=== PATIENT | female | born 1980 | race Caucasian/White ===

== ENCOUNTER → 2020-06-30 | Outpatient (CLI) | payer BC ==
[2020-06-30 11:33] LABS: ESTRADIOL 1866.4 PG/ML; PROGESTERONE 66.8 NG/ML
== END ==
LOC: M LAB 06:23
PROVIDERS: ATTEND Obstetrics & Gynecology Reproductive Endocrinology
DX: E28.9 Ovarian dysfunction, unspecified (principal)

== ENCOUNTER → 2020-07-06 | Outpatient (CLI) | payer BC ==
[2020-07-06 07:53] LABS: HCG, SERUM QUANTITATIVE < 1.0 MIU/ML
[2020-07-06 08:36] LABS: PROGESTERONE 46.86 NG/ML
== END ==
LOC: M LAB 06:45
PROVIDERS: ATTEND Obstetrics & Gynecology Reproductive Endocrinology
DX: Z32.00 Encounter for pregnancy test, result unknown (principal)

== ENCOUNTER → 2020-11-04 | Outpatient (CLI) | payer BC ==
[2020-11-04 10:32] LABS: ESTRADIOL 1819.4 PG/ML; PROGESTERONE 40.56 NG/ML
== END ==
LOC: M LAB 06:57
PROVIDERS: ATTEND Obstetrics & Gynecology Reproductive Endocrinology
DX: Z31.49 Encounter for other procreative investigation and testing (principal)

== ENCOUNTER → 2020-11-09 | Outpatient (CLI) | payer BC ==
[2020-11-09 07:41] LABS: HCG, SERUM QUANTITATIVE < 1.0 MIU/ML
[2020-11-09 11:17] LABS: PROGESTERONE 34.44 NG/ML
== END ==
LOC: M LAB 06:47
PROVIDERS: ATTEND Obstetrics & Gynecology Reproductive Endocrinology
DX: Z32.00 Encounter for pregnancy test, result unknown (principal)

== ENCOUNTER → 2020-12-08 | Outpatient (CLI) | payer BC ==
[2020-12-08 10:33] LABS: BASO % 0.2 % (0.0-1.0); EOS # 0.1 10^3/uL (0.0-0.5); EOS % 1.2 % (0.0-3.0); HEMATOCRIT 42.4 % (36.0-47.0); LYMPH # 1.8 10^3/uL (1.5-5.0); LYMPH % 29.4 % (24.0-44.0); MEAN CORPUSCULAR HEMOGLOBIN 30.8 pg (27.0-33.0); MEAN CORPUSCULAR VOLUME 93.2 fl (80.0-96.0); MONO # 0.5 10^3/uL (0.0-0.8); MONO % 7.4 % (2.0-8.0); NEUTROPHILS # 3.7 10^3/uL (1.5-8.5); NEUTROPHILS % 61.3 % (36.0-66.0); PLATELET COUNT, AUTOMATED 278 10^3/uL (150-450); RED BLOOD COUNT 4.55 10^6/uL (4.00-5.40); WHITE BLOOD COUNT 6.1 10^3/uL (4.0-10.0)
[2020-12-08 11:08] LABS: ALBUMIN 3.5 GM/DL (3.2-5.2); ALT/SGPT 25 U/L (12-78); BILIRUBIN,TOTAL 0.4 MG/DL (0.2-1.0); BLOOD UREA NITROGEN 11 MG/DL (7-18); CARBON DIOXIDE LEVEL 27 MEQ/L (21-32); CHLORIDE LEVEL 107 MEQ/L (98-107); CHOLESTEROL LEVEL 223 MG/DL (<200); CHOLESTEROL RISK RATIO 3.716 (<5); FREE T4 0.95 NG/DL (0.76-1.46); GLOMERULAR FILTRATION RATE > 60.0 (>60); GLUCOSE, FASTING 87 MG/DL (70-100); HDL CHOLESTEROL 60 MG/DL (>40); LDL CHOLESTEROL 145 MG/DL (<100); NON-HDL-C 163 MG/DL; POTASSIUM SERUM 4.3 MEQ/L (3.5-5.1); SODIUM LEVEL 142 MEQ/L (136-145); TOTAL PROTEIN 6.5 GM/DL (6.4-8.2); TRIGLYCERIDES LEVEL 91 MG/DL (<150)
[2020-12-08 11:19] LABS: HEMOGLOBIN A1c 5.2 %
== END ==
LOC: M PLALAB 08:35
PROVIDERS: ATTEND Nurse Practitioner Family
DX: Z00.00 Encounter for general adult medical examination without abnormal findings (principal); Z13.228 Encounter for screening for other metabolic disorders; Z13.220 Encounter for screening for lipoid disorders

== ENCOUNTER → 2021-03-24 | Outpatient (CLI) | payer BC ==
--- NOTE | 2021-03-24 08:29 | REP ---
INDICATION: INFERTILITY LABS AFTER US COMPARISON: None. TECHNIQUE: Transvaginal examination of the uterus and adnexa with color Doppler evaluation of the ovaries. FINDINGS: Normal anteverted uterus measures 6.7 x 3.4 x 4.3 cm. The endometrial complex measures 4.8 mm thickness. No discrete uterine or endometrial abnormalities are appreciated. Right ovary measures 3.7 x 2.1 x 2.5 cm and includes 10 x 5.3 mm follicle and 20 follicles between 2.7 and 8.6 mm. Left ovary measures 3.4 x 1.9 x 2.5 cm and includes 12.5 x 7.0 mm follicle with small amount of debris and 15 follicles between 1.1 and 8.2 mm. IMPRESSION: Predominantly subcentimeter follicles as noted above. <Electronically signed by Rahul Gonzáles > 03/24/21 1827
[2021-03-24 09:05] LABS: HCG, SERUM QUANTITATIVE < 1.0 MIU/ML
[2021-03-24 09:32] LABS: ESTRADIOL 27.7 PG/ML; LUTEINIZING HORMONE 6.5 mIU/mL; PROGESTERONE 0.76 NG/ML
== END ==
LOC: M LAB 06:38
PROVIDERS: ATTEND Obstetrics & Gynecology Reproductive Endocrinology
DX: Z31.83 Encounter for assisted reproductive fertility procedure cycle (principal); N83.01 Follicular cyst of right ovary; N83.02 Follicular cyst of left ovary

== ENCOUNTER → 2021-03-29 | Outpatient (CLI) | payer BC ==
--- NOTE | 2021-03-29 09:42 | REP ---
INDICATION: INFERTILITY. COMPARISON: None. TECHNIQUE: Transvaginal pelvic ultrasound FINDINGS: The uterus measures 8.5 x 3.3 x 4.7 cm. The endometrial echo complex is unremarkable in appearance having a maximal thickness of 9 mm. There is a small amount of free fluid in the cul-de-sac and endocervical canal. The right ovary measures 5.2 x 3.7 x 5 cm. Within the right ovary there are 15 follicles that measure 1 cm or greater. They are as follows: 1.3 x 0.8, 2.1 x 1.5, 1.4 x 1.6, 1.5 x 1.1, 2.0 x 0.9, 1.5 x 1.2, 1.7 x 1.1, 1.5 x 0.5, 1.3 x 0.9, 1.1 x 0.6, 1.3 x 0.7, 1.7 x 1.3, 1.5 x 0.6, 1.4 x 1.3, and 1.9 x 1.6. Additionally, there are 10 follicles in the 3-9 mm range. The left ovary measures 3.6 x 2.7 x 2.7 cm. Within the left ovary there are 6 follicles that measure 1 cm or greater. They are as follows: 1.1 x 0.4, 1.4 x 1.2, 1.3 x 1.5, 1.1 x 0.6, and 1.6 x 1.4. Additionally, there are 3 follicles in the 4-7 mm range. IMPRESSION: Ovarian follicle study as described above. <Electronically signed by José Luis Callejas > 03/29/21 0933
[2021-03-29 10:03] LABS: ESTRADIOL 449.3 PG/ML; LUTEINIZING HORMONE 9.9 mIU/mL; PROGESTERONE 1.71 NG/ML
== END ==
LOC: M RAD 08:35
PROVIDERS: ATTEND Obstetrics & Gynecology Reproductive Endocrinology
DX: E28.9 Ovarian dysfunction, unspecified (principal)

== ENCOUNTER → 2021-03-31 | Outpatient (CLI) | payer BC ==
--- NOTE | 2021-03-31 08:48 | REP ---
INDICATION: INFERTILITY- LABS AFTER. COMPARISON: None. TECHNIQUE: THIS EXAMINATION HAS BEEN BROUGHT TO MY ATTENTION FOR THE 1ST TIME FOR INTERPRETATION TODAY AT THIS TIME. Real-time sonographic evaluation of the pelvis using trans vaginal technique only FINDINGS: The uterus measures 9 x 5.5 x 3.9 cm. The parenchymal echo pattern is within normal limits. The endometrial echo complex measures 1 cm in thickness and has a normal appearance. There is a small amount of fluid in the cul-de-sac and endocervical canal. The right ovary measures 6.2 x 5.9 x 3.8 cm. Within the right ovary there are 12 follicles which measure 1 cm in size or greater. They are as follows: 2.7 x 1.7, 2.1 x 1.0, 2.1 x 1.5, 1.7 x 1.1, 1.2 x 0.8, 2.8 x 2.2, 1.8 x 1.2, 1.5 x 1.2, 1.7 x 1.2, 2.1 x 1.2, 2.0 x 1.3, and 2.3 x 1.9. In addition, there are 5 follicles which measure between 6 and 7 mm The left ovary measures 3.1 x 3.5 x 2.8 cm. There are 5 follicles which measure 1 cm in size or greater. They are as follows: 1.9 x 1.5, 2.1 x 1.3, 1.7 x 1.4, 1.8 x 1.2, and 1.1 x 1. In addition, there are 6 follicles which measure between 4 and 9 mm. IMPRESSION: Ovarian follicle study as described above. <Electronically signed by José Luis Callejas > 03/31/21 [id number]
[2021-03-31 15:42] LABS: ESTRADIOL 746.8 PG/ML; LUTEINIZING HORMONE 1.6 mIU/mL; PROGESTERONE 2.58 NG/ML
== END ==
LOC: M RAD 06:56
PROVIDERS: ATTEND Obstetrics & Gynecology Reproductive Endocrinology
DX: E28.9 Ovarian dysfunction, unspecified (principal)

== ENCOUNTER → 2021-04-17 | Outpatient (CLI) | payer BC ==
--- NOTE | 2021-04-17 10:15 | REP ---
INDICATION: INFERTILITY\ NEEDS LABS AFTER US. COMPARISON: None. TECHNIQUE: Transvaginal pelvic ultrasound for ovarian follicle study FINDINGS: The uterus is unchanged in size, shape, and echo pattern measuring 7.3 x 4.0 x 4.5 cm. The endometrial echo echo complex is within normal limits measuring 4 mm in its greatest thickness. There is a trace amount of free fluid likely physiologic. The right ovary measures 6 x 2.7 x 3.3 cm. The RI is 0.54. There are 7 follicles in the 10 mm and greater size. They are as follows: 1.5 x 1.1, 1.4 x 1.5, 1.2 x 1.5, 1.4 x 1.4, 1.5 x 1.8, 1.9 x 1.5, and 1.6 x 1.4 cm. Additionally, there are 7 follicles in the 2-7 mm range. The left ovary measures 4.7 x 3.7 x 3.3 cm with an RI 0.64. In the left ovary there are 6 follicles in the 10 mm and larger range. They are as follows: 1.2 x 0.5, 1.5 x 1.6, 2 x 2, 1.3 x 0.7, 2.1 x 1.9, and 0.9 x 1.1 cm. Additionally, there 14 follicles in the 2-9 mm range. IMPRESSION: Ovarian follicle study as described above. <Electronically signed by José Luis Callejas > 04/17/21 0470
[2021-04-17 10:40] LABS: HCG, SERUM QUANTITATIVE < 1.0 MIU/ML
[2021-04-17 10:58] LABS: ESTRADIOL 30.6 PG/ML; LUTEINIZING HORMONE 6.3 mIU/mL; PROGESTERONE 1.03 NG/ML
[2021-04-17 10:59] LABS: FOLLICLE STIMULATING HORMONE 12.8 mIU/mL
== END ==
LOC: M LAB 08:54
PROVIDERS: ATTEND Obstetrics & Gynecology Reproductive Endocrinology
DX: Z31.83 Encounter for assisted reproductive fertility procedure cycle (principal)

== ENCOUNTER → 2021-04-24 | Outpatient (CLI) | payer BC ==
--- NOTE | 2021-04-24 11:13 | REP ---
INDICATION: INFERTILITY COMPARISON: 04/17/2021 TECHNIQUE: Transvaginal pelvic ultrasound. FINDINGS: Anteverted subseptate uterus measures 9.0 x 3.1 x 5.2 cm. The endometrial complex measures 8.5 mm thickness. Right ovary measures 3.8 x 2.3 x 3.8 cm and includes 11 x 10 mm, 17 x 14 mm, and 10 x 7 mm complex appearing follicles along with approximately 24 subcentimeter follicles between 2.2 and 8.2 mm. Left ovary measures 3.6 x 2.5 x 3.0 cm and includes approximately 23 subcentimeter follicles measuring between 2.5 and 9.2 mm. Trace free fluid in the posterior cul-de-sac is nonspecific. IMPRESSION: Predominantly subcentimeter follicles as noted above. <Electronically signed by Rahul Gonzáles > 04/24/21 1100
[2021-04-24 12:35] LABS: LUTEINIZING HORMONE 5.2 mIU/mL; PROGESTERONE 0.52 NG/ML
== END ==
LOC: M RAD 10:32
PROVIDERS: ATTEND Obstetrics & Gynecology Reproductive Endocrinology
DX: E28.9 Ovarian dysfunction, unspecified (principal)

== ENCOUNTER → 2021-06-05 | Outpatient (CLI) | payer BC ==
--- NOTE | 2021-06-05 10:03 | REP ---
INDICATION: INFERTILITY- LABS AFTER COMPARISON: 04/24/2021 TECHNIQUE: Transvaginal examination for better evaluation of the endometrium and adnexa with color Doppler evaluation of the ovaries. FINDINGS: Normal anteverted uterus measures 8.0 x 3.3 x 4.7 cm. The endometrial complex measures 3.0 mm thickness. No discrete uterine or endometrial abnormalities are appreciated. Right ovary measures 3.8 x 2.7 x 3.0 cm (RI 0.56) and includes 16 x 10 mm, 10 x 8 mm, and 10 x 7 mm follicles along with 13 subcentimeter follicles between 2 and 9 mm. Left ovary measures 3.2 x 1.8 x 2.0 cm (RI 0.49) and includes 6 subcentimeter follicles between 3 and 7 mm. No pelvic fluid or adnexal mass lesion. IMPRESSION: Bilateral follicles as noted above. Normal appearance to the uterus. <Electronically signed by Rahul Gonzáles > 06/05/21 0959
[2021-06-05 10:48] LABS: HCG, SERUM QUANTITATIVE < 1.0 MIU/ML
[2021-06-05 10:50] LABS: ESTRADIOL 37.3 PG/ML; LUTEINIZING HORMONE 4.4 mIU/mL
== END ==
LOC: M RAD 09:19
PROVIDERS: ATTEND Obstetrics & Gynecology Reproductive Endocrinology
DX: Z31.83 Encounter for assisted reproductive fertility procedure cycle (principal)

== ENCOUNTER → 2021-07-04 | Outpatient (CLI) | payer BC ==
[2021-07-04 11:18] LABS: HCG, SERUM QUANTITATIVE < 1.0 MIU/ML; LDH LACTATE DEHYDROGENASE 154 U/L (84-246); THYROID STIMULATING HORMONE 0.738 uIU/ML (0.358-3.740)
[2021-07-04 11:20] LABS: ESTRADIOL 34.3 PG/ML; PROGESTERONE 0.85 NG/ML
[2021-07-04 11:21] LABS: FOLLICLE STIMULATING HORMONE 6.2 mIU/mL
== END ==
LOC: M RAD 10:26
PROVIDERS: ATTEND Obstetrics & Gynecology Reproductive Endocrinology
DX: Z13.83 Encounter for screening for respiratory disorder NEC (principal)

== ENCOUNTER → 2021-07-10 | Outpatient (CLI) | payer BC ==
[2021-07-10 10:09] LABS: ESTRADIOL 86.5 PG/ML; LUTEINIZING HORMONE 5.9 mIU/mL; PROGESTERONE 0.74 NG/ML
== END ==
LOC: M RAD 06:48
PROVIDERS: ATTEND Obstetrics & Gynecology Reproductive Endocrinology
DX: Z31.83 Encounter for assisted reproductive fertility procedure cycle (principal); E28.9 Ovarian dysfunction, unspecified

== ENCOUNTER → 2021-07-12 | Outpatient (CLI) | payer BC ==
[2021-07-12 09:29] LABS: ESTRADIOL 208.8 PG/ML; LUTEINIZING HORMONE 4.5 mIU/mL; PROGESTERONE 1.5 NG/ML
== END ==
LOC: M RAD 06:54
PROVIDERS: ATTEND Obstetrics & Gynecology Reproductive Endocrinology
DX: Z31.83 Encounter for assisted reproductive fertility procedure cycle (principal); E28.9 Ovarian dysfunction, unspecified

== ENCOUNTER → 2021-07-21 | Outpatient (CLI) | payer BC ==
[2021-07-21 13:26] LABS: ESTRADIOL 152.6 PG/ML; PROGESTERONE 40.12 NG/ML
== END ==
LOC: M LAB 07:16
PROVIDERS: ATTEND Obstetrics & Gynecology Reproductive Endocrinology
DX: Z31.49 Encounter for other procreative investigation and testing (principal)

== ENCOUNTER → 2021-12-11 | Outpatient (CLI) | payer BC ==
[2021-12-11 13:18] LABS: BASO % 0.2 % (0.0-1.0); EOS # 0.1 10^3/uL (0.0-0.5); EOS % 1.4 % (0.0-3.0); HEMATOCRIT 43.2 % (36.0-47.0); HEMOGLOBIN 14.6 g/dl (12.0-15.5); LYMPH # 2.8 10^3/uL (1.5-5.0); LYMPH % 43.8 % (24.0-44.0); MEAN CORPUSCULAR HEMOGLOBIN 30.5 pg (27.0-33.0); MEAN CORPUSCULAR HGB CONC 33.8 g/dl (32.0-36.5); MEAN CORPUSCULAR VOLUME 90.4 fl (80.0-96.0); MONO # 0.5 10^3/uL (0.0-0.8); MONO % 6.9 % (2.0-8.0); NEUTROPHILS # 3.1 10^3/uL (1.5-8.5); NEUTROPHILS % 47.4 % (36.0-66.0); PLATELET COUNT, AUTOMATED 272 10^3/uL (150-450); RED BLOOD COUNT 4.78 10^6/uL (4.00-5.40); WHITE BLOOD COUNT 6.5 10^3/uL (4.0-10.0)
[2021-12-11 17:02] LABS: ALBUMIN 3.8 GM/DL (3.2-5.2); ALT/SGPT 36 U/L (12-78); BILIRUBIN,TOTAL 0.5 MG/DL (0.2-1.0); BLOOD UREA NITROGEN 10 MG/DL (7-18); CALCIUM LEVEL 9.1 MG/DL (8.5-10.1); CARBON DIOXIDE LEVEL 28 MEQ/L (21-32); CHLORIDE LEVEL 105 MEQ/L (98-107); CHOLESTEROL LEVEL 212 MG/DL (<200); CHOLESTEROL RISK RATIO 3.925 (<5); CREATININE FOR GFR 0.65 MG/DL (0.55-1.30); GLOMERULAR FILTRATION RATE > 60.0 (>58); GLUCOSE, FASTING 92 MG/DL (70-100); HDL CHOLESTEROL 54 MG/DL (>40); LDL CHOLESTEROL 131 MG/DL (<100); NON-HDL-C 158 MG/DL; POTASSIUM SERUM 4.4 MEQ/L (3.5-5.1); SODIUM LEVEL 137 MEQ/L (136-145); TOTAL PROTEIN 6.9 GM/DL (6.4-8.2); TRIGLYCERIDES LEVEL 134 MG/DL (<150)
== END ==
LOC: M PLAIMG 09:19
PROVIDERS: ATTEND Nurse Practitioner Family
DX: K92.1 Melena (principal); E78.5 Hyperlipidemia, unspecified

== ENCOUNTER → 2022-01-10 | Outpatient (CLI) | payer BC | LOC: M WHC 12:33 | PROVIDERS: ATTEND Nurse Practitioner Family | DX: R92.2 Inconclusive mammogram (principal) ==

== ENCOUNTER → 2022-01-25 | Outpatient (CLI) | payer BC ==
[2022-01-25 09:00] LABS: ESTRADIOL 110.1 PG/ML; LUTEINIZING HORMONE 2.9 mIU/mL; PROGESTERONE 0.83 NG/ML
== END ==
LOC: M LAB 06:55
PROVIDERS: ATTEND Obstetrics & Gynecology Reproductive Endocrinology
DX: Z31.83 Encounter for assisted reproductive fertility procedure cycle (principal)

== ENCOUNTER → 2022-01-25 | Outpatient (CLI) | payer BC | LOC: M WHC 07:52 | PROVIDERS: ATTEND Obstetrics & Gynecology Reproductive Endocrinology | DX: Z31.83 Encounter for assisted reproductive fertility procedure cycle (principal) ==

== ENCOUNTER → 2022-01-29 | Outpatient (CLI) | payer BC ==
[2022-01-29 10:51] LABS: ESTRADIOL 1192.7 PG/ML; LUTEINIZING HORMONE 2.2 mIU/mL; PROGESTERONE 1.6 NG/ML
== END ==
LOC: M LAB 07:11
PROVIDERS: ATTEND Obstetrics & Gynecology Reproductive Endocrinology
DX: Z31.83 Encounter for assisted reproductive fertility procedure cycle (principal); E28.9 Ovarian dysfunction, unspecified

== ENCOUNTER → 2022-01-29 | Outpatient (CLI) | payer BC | LOC: M WHC 07:55 | PROVIDERS: ATTEND Obstetrics & Gynecology Reproductive Endocrinology | DX: Z31.83 Encounter for assisted reproductive fertility procedure cycle (principal); E28.9 Ovarian dysfunction, unspecified ==

== ENCOUNTER → 2022-01-31 | Outpatient (CLI) | payer BC | LOC: M WHC 07:28 | PROVIDERS: ATTEND Nurse Practitioner Family | DX: R92.8 Other abnormal and inconclusive findings on diagnostic imaging of breast (principal) | CPT/HCPCS: 76642; 77066; G0279 ==

== ENCOUNTER → 2022-02-14 | Outpatient (CLI) | payer BC ==
[2022-02-14 13:15] LABS: ESTRADIOL 27.5 PG/ML; LUTEINIZING HORMONE 5.4 mIU/mL; PROGESTERONE 0.48 NG/ML
[2022-02-19 14:50] LABS: HCG, SERUM QUANTITATIVE < 1.0 MIU/ML
[2022-02-19 15:26] LABS: FOLLICLE STIMULATING HORMONE 9.8 mIU/mL
== END ==
LOC: M LAB 11:10
PROVIDERS: ATTEND Obstetrics & Gynecology Reproductive Endocrinology
DX: Z31.83 Encounter for assisted reproductive fertility procedure cycle (principal); E28.9 Ovarian dysfunction, unspecified

== ENCOUNTER → 2022-02-14 | Outpatient (CLI) | payer BC | LOC: M WHC 09:34 | PROVIDERS: ATTEND Obstetrics & Gynecology Reproductive Endocrinology | DX: Z31.83 Encounter for assisted reproductive fertility procedure cycle (principal); E28.9 Ovarian dysfunction, unspecified ==

== ENCOUNTER → 2022-02-21 | Outpatient (CLI) | payer BC | LOC: M WHC 07:17 | PROVIDERS: ATTEND Obstetrics & Gynecology Reproductive Endocrinology | DX: Z31.83 Encounter for assisted reproductive fertility procedure cycle (principal) ==

== ENCOUNTER → 2022-02-21 | Outpatient (CLI) | payer BC ==
[2022-02-21 11:28] LABS: ESTRADIOL 158.1 PG/ML; PROGESTERONE 0.21 NG/ML
== END ==
LOC: M PLALAB 08:04
PROVIDERS: ATTEND Obstetrics & Gynecology Reproductive Endocrinology
DX: Z31.83 Encounter for assisted reproductive fertility procedure cycle (principal)

== ENCOUNTER → 2022-03-09 | Outpatient (CLI) | payer BC ==
[2022-03-09 13:05] LABS: PROGESTERONE 54.38 NG/ML
== END ==
LOC: M LAB 07:23
PROVIDERS: ATTEND Obstetrics & Gynecology Reproductive Endocrinology
DX: Z32.00 Encounter for pregnancy test, result unknown (principal)

== ENCOUNTER → 2022-03-12 | Outpatient (CLI) | payer BC ==
[2022-03-12 11:32] LABS: THYROID STIMULATING HORMONE 1.23 uIU/ML (0.358-3.740)
[2022-03-12 11:51] LABS: ESTRADIOL 205.2 PG/ML; PROGESTERONE 47.38 NG/ML
== END ==
LOC: M PLALAB 08:28
PROVIDERS: ATTEND Obstetrics & Gynecology Reproductive Endocrinology
DX: Z32.01 Encounter for pregnancy test, result positive (principal)

== ENCOUNTER → 2022-04-25 | Outpatient (CLI) | payer BC | LOC: M LAB 08:23 | PROVIDERS: ATTEND Obstetrics & Gynecology Reproductive Endocrinology | DX: O02.1 Missed abortion (principal) ==

== ENCOUNTER → 2022-05-11 | Outpatient (CLI) | payer BC | LOC: M PLALAB 15:29 | PROVIDERS: ATTEND Obstetrics & Gynecology Reproductive Endocrinology | DX: O02.1 Missed abortion (principal) ==

== ENCOUNTER → 2022-05-22 | Outpatient (CLI) | payer BC ==
[2022-05-29 17:07] LABS: ANTIPHOSPHATIDYLSERINE IgA <1 APS Units (0-19); ANTIPHOSPHATIDYLSERINE IgG <9 Units (0-30); ANTIPHOSPHATIDYLSERINE IgM 11 Units (0-30)
[2022-05-30 09:08] LABS: ANTI THROMBIN 3 ANTIGEN IMMUNO 82 % (72-124); ANTI THROMBIN 3 FUNCT ACTIVITY 117 % (75-135); ANTINUCLEAR ANTIBODIES DIRECT Negative (Negative); BETA-2 GLYCOPROTEIN I ABY IGA <9 (0-25); BETA-2 GLYCOPROTEIN I ABY IGG <9 (0-20); BETA-2 GLYCOPROTEIN I ABY IGM <9 (0-32); CARDIOLIPIN IGA ANTIBODY <9 APL U/mL (0-11); CARDIOLIPIN IGG ANTIBODY <9 GPL U/mL (0-14); CARDIOLIPIN IGM ANTIBODY <9 MPL U/mL (0-12); PROTEIN C FUNCTIONAL ACTIVITY 115 % (73-180); PROTEIN S ANTIGEN FREE 122 % (61-136); PROTEIN S ANTIGEN TOTAL 135 % (60-150)
== END ==
LOC: M PLALAB 13:44
PROVIDERS: ATTEND Obstetrics & Gynecology Reproductive Endocrinology
DX: N96 Recurrent pregnancy loss (principal)

== ENCOUNTER → 2022-05-30 | Outpatient (REF) | payer BC | LOC: M LAB REF 16:46 → M PLALAB 16:46 | PROVIDERS: ATTEND Obstetrics & Gynecology Reproductive Endocrinology | DX: Z87.59 Personal history of other complications of pregnancy, childbirth and the puerperium (principal) ==

== ENCOUNTER → 2022-06-26 | Outpatient (CLI) | payer BC ==
[2022-06-26 11:21] LABS: HEMOGLOBIN A1c 5.1 % (4.0-6.0)
[2022-06-26 11:28] LABS: HCG, SERUM QUANTITATIVE < 2.6 MIU/ML (<4.2)
[2022-06-26 11:31] LABS: THYROID STIMULATING HORMONE 2.238 uIU/ML (0.55-4.78)
[2022-06-26 11:32] LABS: ESTRADIOL 55.5 PG/ML; LUTEINIZING HORMONE 2.6 mIU/ML
[2022-06-26 11:33] LABS: PROGESTERONE 0.81 NG/ML
[2022-06-26 11:38] LABS: HEPATITIS B SURFACE ANTIBODY POSITIVE (POSITIVE); TOTAL 25(OH) VITAMIN D 69.3 NG/ML (20.0-100.0)
[2022-06-26 11:40] LABS: TESTOSTERONE 38 NG/DL (14-76)
[2022-06-26 12:04] LABS: HIV 1&2 SCREEN CENTAUR NEGATIVE (NEGATIVE)
== END ==
LOC: M PLALAB 07:49
PROVIDERS: ATTEND Obstetrics & Gynecology Reproductive Endocrinology
DX: Z31.83 Encounter for assisted reproductive fertility procedure cycle (principal); Z31.41 Encounter for fertility testing

== ENCOUNTER → 2022-06-26 | Outpatient (CLI) | payer BC | LOC: M WHC 07:43 | PROVIDERS: ATTEND Obstetrics & Gynecology Reproductive Endocrinology | DX: Z31.83 Encounter for assisted reproductive fertility procedure cycle (principal); N83.01 Follicular cyst of right ovary; N83.02 Follicular cyst of left ovary ==

== ENCOUNTER → 2022-07-02 | Outpatient (CLI) | payer BC ==
[2022-07-02 10:14] LABS: ESTRADIOL 152.4 PG/ML; LUTEINIZING HORMONE 7.6 mIU/ML; PROGESTERONE 0.67 NG/ML
== END ==
LOC: M RAD 08:48
PROVIDERS: ATTEND Obstetrics & Gynecology Reproductive Endocrinology
DX: Z31.83 Encounter for assisted reproductive fertility procedure cycle (principal); E28.9 Ovarian dysfunction, unspecified

== ENCOUNTER → 2022-07-11 | Outpatient (REF) | LOC: M LAB LCGH 12:35 | DX: Z31.83 Encounter for assisted reproductive fertility procedure cycle (principal) ==

== ENCOUNTER → 2022-07-16 | Outpatient (CLI) | payer BC ==
[2022-07-16 08:20] LABS: PROGESTERONE 44.86 NG/ML
== END ==
LOC: M LAB 07:16
PROVIDERS: ATTEND Obstetrics & Gynecology Reproductive Endocrinology
DX: Z32.00 Encounter for pregnancy test, result unknown (principal)

== ENCOUNTER → 2022-07-18 | Outpatient (CLI) | payer BC ==
[2022-07-18 08:51] LABS: THYROID STIMULATING HORMONE 4.056 uIU/ML (0.55-4.78)
[2022-07-18 08:52] LABS: ESTRADIOL 1299.4 PG/ML; PROGESTERONE 34.24 NG/ML
== END ==
LOC: M LAB 07:46
PROVIDERS: ATTEND Obstetrics & Gynecology Reproductive Endocrinology
DX: Z32.01 Encounter for pregnancy test, result positive (principal)

== ENCOUNTER → 2022-08-29 | Outpatient (CLI) | payer BC | LOC: M LAB 08:14 | PROVIDERS: ATTEND Obstetrics & Gynecology Reproductive Endocrinology | DX: O02.1 Missed abortion (principal) ==

== ENCOUNTER → 2022-09-14 | Outpatient (CLI) | payer BC | LOC: M WHC 07:19 | PROVIDERS: ATTEND Nurse Practitioner Family | DX: R92.8 Other abnormal and inconclusive findings on diagnostic imaging of breast (principal) | CPT/HCPCS: 77065; G0279 ==

== ENCOUNTER → 2022-09-14 | Outpatient (CLI) | payer BC | LOC: M PLALAB 07:25 | PROVIDERS: ATTEND Obstetrics & Gynecology Reproductive Endocrinology | DX: O02.1 Missed abortion (principal) ==

== ENCOUNTER → 2022-09-26 | Outpatient (CLI) | payer BC ==
[2022-09-26 11:03] LABS: HCG, SERUM QUANTITATIVE 3.4 MIU/ML (<4.2)
[2022-09-26 11:07] LABS: PROGESTERONE 0.21 NG/ML
[2022-09-26 11:08] LABS: FOLLICLE STIMULATING HORMONE 9.5 mIU/ML; LUTEINIZING HORMONE 4.5 mIU/ML; THYROID STIMULATING HORMONE 0.033 uIU/ML (0.55-4.78)
[2022-09-26 11:09] LABS: ESTRADIOL 39.6 PG/ML
== END ==
LOC: M PLALAB 08:49
PROVIDERS: ATTEND Obstetrics & Gynecology Reproductive Endocrinology
DX: E28.9 Ovarian dysfunction, unspecified (principal)

== ENCOUNTER → 2022-09-26 | Outpatient (CLI) | payer BC | LOC: M WHC 09:08 | PROVIDERS: ATTEND Obstetrics & Gynecology Reproductive Endocrinology | DX: E28.9 Ovarian dysfunction, unspecified (principal) ==

== ENCOUNTER → 2022-10-15 | Outpatient (CLI) | payer BC ==
[2022-10-15 11:40] LABS: PROGESTERONE 76.81 NG/ML
== END ==
LOC: M PLALAB 07:33
PROVIDERS: ATTEND Obstetrics & Gynecology Reproductive Endocrinology
DX: Z31.49 Encounter for other procreative investigation and testing (principal)

== ENCOUNTER → 2022-10-20 | Outpatient (CLI) | payer BC ==
[2022-10-20 10:07] LABS: HCG, SERUM QUANTITATIVE 20.5 MIU/ML (<4.2)
[2022-10-20 10:33] LABS: PROGESTERONE 59.94 NG/ML
== END ==
LOC: M LAB 09:11
PROVIDERS: ATTEND Obstetrics & Gynecology Reproductive Endocrinology
DX: Z32.00 Encounter for pregnancy test, result unknown (principal)

== ENCOUNTER → 2022-10-22 | Outpatient (CLI) | payer BC ==
[2022-10-22 08:55] LABS: THYROID STIMULATING HORMONE 0.955 uIU/ML (0.55-4.78)
[2022-10-22 08:56] LABS: ESTRADIOL 226.1 PG/ML
[2022-10-22 09:15] LABS: PROGESTERONE 71.4 NG/ML
== END ==
LOC: M LAB 07:53
PROVIDERS: ATTEND Obstetrics & Gynecology Reproductive Endocrinology
DX: Z32.01 Encounter for pregnancy test, result positive (principal)

== ENCOUNTER → 2022-10-24 | Outpatient (CLI) | payer BC ==
[2022-10-24 09:33] LABS: ESTRADIOL 516.6 PG/ML
[2022-10-24 09:50] LABS: PROGESTERONE 67.38 NG/ML
== END ==
LOC: M LAB 07:41
PROVIDERS: ATTEND Obstetrics & Gynecology Reproductive Endocrinology
DX: Z32.01 Encounter for pregnancy test, result positive (principal)

== ENCOUNTER → 2023-01-15 | Outpatient (CLI) | payer BC | LOC: M WHC 16:30 | PROVIDERS: ATTEND Nurse Practitioner Family | DX: Z12.31 Encounter for screening mammogram for malignant neoplasm of breast (principal) ==

== ENCOUNTER → 2023-02-12 | Outpatient (CLI) | payer BC | LOC: M PLAIMG 08:58 | PROVIDERS: ATTEND Nurse Practitioner Family | DX: M19.011 Primary osteoarthritis, right shoulder (principal) ==

== ENCOUNTER → 2023-03-27 | Outpatient (CLI) | payer BC ==
[2023-03-27 10:54] LABS: HCG, SERUM QUANTITATIVE < 2.6 MIU/ML (<4.2)
[2023-03-27 10:57] LABS: THYROID STIMULATING HORMONE 0.253 uIU/ML (0.55-4.78)
[2023-03-27 10:58] LABS: FOLLICLE STIMULATING HORMONE 9.8 mIU/ML
[2023-03-27 10:59] LABS: ESTRADIOL 37.4 PG/ML; LUTEINIZING HORMONE 4.7 mIU/ML
[2023-03-27 11:00] LABS: PROGESTERONE 4.16 NG/ML
== END ==
LOC: M RAD 08:11
PROVIDERS: ATTEND Obstetrics & Gynecology Reproductive Endocrinology
DX: Z31.83 Encounter for assisted reproductive fertility procedure cycle (principal); E28.9 Ovarian dysfunction, unspecified

== ENCOUNTER → 2023-04-18 | Outpatient (CLI) | payer BC ==
[2023-04-18 11:07] LABS: ESTRADIOL 286.4 PG/ML; PROGESTERONE 48.89 NG/ML
== END ==
LOC: M PLALAB 07:37
PROVIDERS: ATTEND Obstetrics & Gynecology Reproductive Endocrinology
DX: Z31.49 Encounter for other procreative investigation and testing (principal)

== ENCOUNTER → 2023-04-24 | Outpatient (CLI) | payer BC ==
[2023-04-24 10:39] LABS: HCG, SERUM QUANTITATIVE < 2.6 MIU/ML (<4.2)
[2023-04-24 10:43] LABS: PROGESTERONE 50.64 NG/ML
== END ==
LOC: M PLALAB 07:14
PROVIDERS: ATTEND Obstetrics & Gynecology Reproductive Endocrinology
DX: Z32.00 Encounter for pregnancy test, result unknown (principal)

== ENCOUNTER → 2023-05-14 | Outpatient (CLI) | payer BC ==
[2023-05-14 10:51] LABS: ESTRADIOL 152.7 PG/ML; PROGESTERONE 56.61 NG/ML
== END ==
LOC: M PLALAB 07:59
PROVIDERS: ATTEND Obstetrics & Gynecology Reproductive Endocrinology
DX: Z31.49 Encounter for other procreative investigation and testing (principal)

== ENCOUNTER → 2023-05-20 | Outpatient (CLI) | payer BC ==
[2023-05-20 10:52] LABS: HCG, SERUM QUANTITATIVE < 2.6 MIU/ML (<4.2)
[2023-05-20 11:21] LABS: PROGESTERONE 69.79 NG/ML
== END ==
LOC: M PLALAB 08:22
PROVIDERS: ATTEND Obstetrics & Gynecology Reproductive Endocrinology
DX: Z32.00 Encounter for pregnancy test, result unknown (principal)

== ENCOUNTER → 2023-07-29 | Outpatient (CLI) | payer BC, OTHER, SELFPAY ==
[2023-07-29 09:54] LABS: HCG, SERUM QUANTITATIVE < 2.6 MIU/ML (<4.2)
[2023-07-29 09:56] LABS: ESTRADIOL 66.7 PG/ML; THYROID STIMULATING HORMONE 1.424 uIU/ML (0.55-4.78)
[2023-07-29 09:57] LABS: LUTEINIZING HORMONE 4.4 mIU/ML
[2023-07-29 10:00] LABS: PROGESTERONE < 0.21 NG/ML
== END ==
LOC: M RAD 08:10
PROVIDERS: ATTEND Obstetrics & Gynecology Reproductive Endocrinology
DX: Z31.83 Encounter for assisted reproductive fertility procedure cycle (principal)

== ENCOUNTER → 2023-08-02 | Outpatient (CLI) | payer OTHER ==
[2023-08-02 12:34] LABS: ESTRADIOL 231.6 PG/ML; LUTEINIZING HORMONE 16.8 mIU/ML
[2023-08-02 12:35] LABS: PROGESTERONE < 0.21 NG/ML
== END ==
LOC: M RAD 08:01
PROVIDERS: ATTEND Obstetrics & Gynecology Reproductive Endocrinology
DX: E28.9 Ovarian dysfunction, unspecified (principal); N83.01 Follicular cyst of right ovary; N83.02 Follicular cyst of left ovary

== ENCOUNTER → 2023-12-01 | Outpatient (CLI) | payer OTHER | LOC: M LAB 15:23 | PROVIDERS: ATTEND Obstetrics & Gynecology Reproductive Endocrinology | DX: Z32.00 Encounter for pregnancy test, result unknown (principal) ==

== ENCOUNTER → 2024-01-06 | Outpatient (CLI) | payer OTHER ==
[2024-01-06 10:42] LABS: HEMATOCRIT 44.3 % (36.0-47.0); HEMOGLOBIN 14.9 g/dl (12.0-15.5); MEAN CORPUSCULAR HEMOGLOBIN 30.2 pg (27.0-33.0); MEAN CORPUSCULAR HGB CONC 33.6 g/dl (32.0-36.5); MEAN CORPUSCULAR VOLUME 89.7 fl (80.0-96.0); PLATELET COUNT, AUTOMATED 293 10^3/uL (150-450); RED BLOOD COUNT 4.94 10^6/uL (4.00-5.40); WHITE BLOOD COUNT 6.2 10^3/uL (4.0-10.0)
[2024-01-06 10:49] LABS: ALKALINE PHOSPHATASE 80 U/L (46-116); ALT/SGPT 19 U/L (7.0-40); AST/SGOT 15 U/L (<34); BILIRUBIN,TOTAL 0.5 MG/DL (0.3-1.2); BLOOD UREA NITROGEN 9 MG/DL (9-23); CALCIUM LEVEL 9.6 MG/DL (8.5-10.1); CARBON DIOXIDE LEVEL 29 MMOL/L (20-31); CHLORIDE LEVEL 105 MMOL/L (98-107); CHOLESTEROL LEVEL 239 MG/DL (<200); CHOLESTEROL RISK RATIO 4.17 (<5); CREATININE FOR GFR 0.59 MG/DL (0.55-1.30); GLOMERULAR FILTRATION RATE > 60.0 (>58); GLUCOSE, FASTING 86 MG/DL (60-100); HDL CHOLESTEROL 57.2 MG/DL (>40); LDL CHOLESTEROL 149.2 MG/DL (<100); NON-HDL-C 181.8 MG/DL; POTASSIUM SERUM 3.9 MMOL/L (3.5-5.1); SODIUM LEVEL 141 MMOL/L (136-145); TOTAL PROTEIN 6.6 G/DL (5.7-8.2); TRIGLYCERIDES LEVEL 163 MG/DL (<150)
[2024-01-06 10:52] LABS: THYROID STIMULATING HORMONE 1.935 uIU/ML (0.55-4.78)
[2024-01-06 12:55] LABS: ATYPICAL LYMPH 4 % (0-5); LYMPHOCYTES 43 % (16-44); MONOCYTES 3 % (0-5); NEUTROPHILS 49 % (28-66)
[2024-01-06 12:57] LABS: PLATELET ESTIMATE NORMAL (NORMAL)
== END ==
LOC: M PLALAB 08:28
PROVIDERS: ATTEND Nurse Practitioner Family
DX: Z00.00 Encounter for general adult medical examination without abnormal findings (principal); E78.5 Hyperlipidemia, unspecified; E55.9 Vitamin D deficiency, unspecified; E03.9 Hypothyroidism, unspecified

== ENCOUNTER → 2024-02-21 | Outpatient (CLI) | payer OTHER ==
[2024-02-21 08:27] LABS: HCG, SERUM QUANTITATIVE < 2.6 MIU/ML (<4.2)
[2024-02-21 08:30] LABS: THYROID STIMULATING HORMONE 1.401 uIU/ML (0.55-4.78)
[2024-02-21 08:31] LABS: ESTRADIOL 51.7 PG/ML; FOLLICLE STIMULATING HORMONE 7.2 mIU/ML; LUTEINIZING HORMONE 2.5 mIU/ML
[2024-02-21 08:32] LABS: PROGESTERONE 0.25 NG/ML
== END ==
LOC: M RAD 07:14
PROVIDERS: ATTEND Obstetrics & Gynecology Reproductive Endocrinology
DX: Z31.83 Encounter for assisted reproductive fertility procedure cycle (principal)

== ENCOUNTER → 2024-03-10 | Outpatient (CLI) | payer OTHER ==
[2024-03-10 08:15] LABS: HEMATOCRIT 45.7 % (36.0-47.0); HEMOGLOBIN 15.4 g/dl (12.0-15.5); MEAN CORPUSCULAR HEMOGLOBIN 30.4 pg (27.0-33.0); MEAN CORPUSCULAR HGB CONC 33.7 g/dl (32.0-36.5); MEAN CORPUSCULAR VOLUME 90.3 fl (80.0-96.0); PLATELET COUNT, AUTOMATED 266 10^3/uL (150-450); RED BLOOD COUNT 5.06 10^6/uL (4.00-5.40)
[2024-03-10 08:47] LABS: WHITE BLOOD COUNT 48.4 10^3/uL (4.0-10.0)
[2024-03-10 08:49] LABS: ESTRADIOL 288.9 PG/ML; PROGESTERONE 34.83 NG/ML
[2024-03-10 08:57] LABS: LYMPHOCYTES 7 % (16-44); METAMYELOCYTES 1 % (0-0); MONOCYTES 4 % (0-5); NEUTROPHILS 83 % (28-66)
[2024-03-10 09:03] LABS: PLATELET ESTIMATE NORMAL (NORMAL)
== END ==
LOC: M LAB 07:20
PROVIDERS: ATTEND Obstetrics & Gynecology Reproductive Endocrinology
DX: Z31.49 Encounter for other procreative investigation and testing (principal)

== ENCOUNTER → 2024-03-16 | Outpatient (CLI) | payer OTHER ==
[2024-03-16 09:54] LABS: HCG, SERUM QUANTITATIVE < 2.6 MIU/ML (<4.2)
[2024-03-16 09:59] LABS: HEMATOCRIT 43.9 % (36.0-47.0); HEMOGLOBIN 14.9 g/dl (12.0-15.5); MEAN CORPUSCULAR HGB CONC 33.9 g/dl (32.0-36.5); MEAN CORPUSCULAR VOLUME 91.3 fl (80.0-96.0); PLATELET COUNT, AUTOMATED 276 10^3/uL (150-450); PROGESTERONE 12.79 NG/ML; RED BLOOD COUNT 4.81 10^6/uL (4.00-5.40)
[2024-03-16 10:26] LABS: WHITE BLOOD COUNT 39.6 10^3/uL (4.0-10.0)
[2024-03-16 11:01] LABS: ATYPICAL LYMPH 5 % (0-5); EOSINOPHILS 1 % (0-3); LYMPHOCYTES 12 % (16-44); MONOCYTES 1 % (0-5); NEUTROPHILS 77 % (28-66)
[2024-03-16 11:04] LABS: PLATELET ESTIMATE NORMAL (NORMAL)
== END ==
LOC: M LAB 08:27
PROVIDERS: ATTEND Obstetrics & Gynecology Reproductive Endocrinology
DX: Z32.00 Encounter for pregnancy test, result unknown (principal)

== ENCOUNTER → 2024-05-04 | Outpatient (CLI) | payer OTHER ==
[2024-05-04 09:05] LABS: PROGESTERONE 79.76 NG/ML
== END ==
LOC: M LAB 07:41
PROVIDERS: ATTEND Obstetrics & Gynecology Reproductive Endocrinology
DX: Z31.49 Encounter for other procreative investigation and testing (principal)

== ENCOUNTER → 2024-05-11 | Outpatient (CLI) | payer OTHER ==
[2024-05-11 10:18] LABS: HCG, SERUM QUANTITATIVE < 2.6 MIU/ML (<4.2)
[2024-05-11 10:22] LABS: PROGESTERONE 44.33 NG/ML
== END ==
LOC: M LAB 08:36
PROVIDERS: ATTEND Obstetrics & Gynecology Reproductive Endocrinology
DX: Z32.00 Encounter for pregnancy test, result unknown (principal)